=== PATIENT | male | born 1990 | race Caucasian/White ===

== ENCOUNTER 2016-08-15 06:42 | Emergency (ER) | payer MEDICAID, OTHER ==
[~2016-08-15] VITALS: Ht 177.8 cm; Wt 74.8 kg
[2016-08-15] MEDS ORDERED: NALOXONE HCL 1MG/ML 2ML SYRINGE ONE (07:12)
[2016-08-15] MEDS ORDERED: ONDANSETRON HCL 4 MG/2 ML VIAL ONE (07:26)
[2016-08-15] MEDS ORDERED: NALOXONE HCL 1MG/ML 2ML SYRINGE IV ONE (07:30)
[2016-08-15] MEDS ORDERED: ONDANSETRON HCL 4 MG/2 ML VIAL IV ONE (07:30)
[2016-08-15] MEDS ORDERED: SODIUM CHLORIDE 0.9% 1,000 ML IV ONE (07:30)
[2016-08-15 07:38] LABS: Basophils # (auto) 0 uL; Basophils % (auto) 0.4 % (0.0-2.0); Eosinophils # (auto) 0.2 uL; Eosinophils % (auto) 2.6 % (0.0-7.0); Hematocrit 44.4 % (41.0-53.0); Hemoglobin 15.1 g/dL (13.5-17.5); Lymphocytes # (auto) 3.4 uL; Mean Corpuscular Hemoglobin 29.9 pg (28.0-32.0); Mean Corpuscular Hgb Conc. 33.9 g/dL (32.0-36.0); Mean Corpuscular Volume 88.2 fL (80.0-100.0); Mean Platelet Volume 8.2 fL (7.4-10.4); Monocytes # (auto) 0.5 uL; Neutrophils # (auto) 3.1 uL; Platelet Count (auto) 359 10^3/uL (140-450); Red Cell Distribution Width 13.8 % (11.6-16.0); White Blood Cell 7.3 10^3/uL (4.4-10.8)
[2016-08-15 08:00] LABS: Anion Gap 7 (5-15); Aspartate Aminotransferase 49 U/L (15-37); Blood Urea Nitrogen 7 mg/dL (7-18); Carbon Dioxide 31 mmol/L (21-32); Chloride 102 mmol/L (98-107); GFR African American 116 mL/min; GFR Non-African American 96 mL/min; Glucose 93 mg/dL (74-106); Potassium 3.5 mmol/L (3.5-5.1); Sodium 140 mmol/L (136-145)
[2016-08-15 08:01] LABS: Alkaline Phosphatase 55 U/L (45-117); Bilirubin, Total 0.3 mg/dL (0.2-1.0); Total Protein 8.4 g/dL (6.4-8.2)
[2016-08-15 08:02] LABS: Salicylate 1.8 mg/dL (2.8-20.0)
[2016-08-15 08:03] LABS: Acetaminophen < 2.0 ug/mL (10-30)
[2016-08-15 10:57] VITALS: BP 108/56
== END 2016-08-15 11:55 | disposition home or self-care (01) ==
LOC: ER 06:42 → EDBD 06:42 → ER 11:55
DX: T40.1X1A Poisoning by heroin, accidental (unintentional), initial encounter (principal); R41.82 Altered mental status, unspecified; F17.210 Nicotine dependence, cigarettes, uncomplicated; Y92.9 Unspecified place or not applicable
CPT/HCPCS: 36415; 80053; 80320; 80329; 85025; 93005; 94761; 96361; 96374; 96375; 99285; J2310; J2405; J7030